=== PATIENT | female | born 1975 | race Caucasian/White ===

== ENCOUNTER → 2018-05-02 16:27 | Outpatient (CLI) | payer OTHER, SELFPAY ==
--- NOTE | 2018-05-02 16:32 | RAD_ITS ---
STUDY: X-RAY CHEST REASON FOR EXAM: Female, 43 years old. Persistent cough. Treated for influenza 2 weeks ago. TECHNIQUE: PA and lateral chest. COMPARISON: July 09, 2016. FINDINGS: The lungs are clear and expanded. There is no demonstrated pleural abnormality. Normal size heart. Normal mediastinum and alesia. Normal visualized pulmonary arteries. Normal visualized aortic arch and descending thoracic aorta. Normal visualized thoracic spine. Normal visualized ribs, clavicles, and shoulders. There is no demonstrated abnormality of the visualized soft tissue structures of the upper abdomen. RAD/Chest PA and Lateral IMPRESSION: Normal x-ray examination of the chest. Electronically Signed: Akash Londono MD at 2:10 EST , Service support ,
== END ==
PROVIDERS: Family Provider Internal Medicine; PCP Internal Medicine; Referring Provider Internal Medicine; Visit Provider Internal Medicine
DX: J11.1 Influenza due to unidentified influenza virus with other respiratory manifestations (principal)
CPT/HCPCS: 71046

== ENCOUNTER → 2019-10-10 14:45 | Outpatient (CLI) | payer OTHER, SELFPAY ==
--- NOTE | 2019-10-10 14:50 | BI_ITS ---
MAMMOGRAPHY - BILATERAL SCREENING 3-D TOMOSYNTHESIS REASON FOR EXAM: Female, 44 years old. Routine screening PERTINENT HISTORY: FAM HX MOTHER AGE 58, PAT GRT AUNT AGE ? -- LOST 80# IN 3 YRS -- BILAT REDUCTION AND LIFT 2008. TECHNIQUE: 2-D mammograms and 3-D Tomosynthesis of the breast (s) were performed. CAD was performed. COMPARISON: 2017 FINDINGS: The breast composition is composed of scattered fibroglandular density. Scattered benign calcifications are seen. No dense spiculated masses or suspicious microcalcifications are identified. No architectural distortion is identified. There is no skin thickening or retraction. There has been no significant change since the prior study. BI/SCREEN MAMM (CAD) W/SHELLEY BILAT IMPRESSION: No mammographic signs of malignancy. Routine yearly mammograms recommended. ASSESSMENT CATEGORY: BIRADS Category 1: Negative. A letter regarding these results will be sent to the patient by the facility within 30 days. FOLLOW UP RECOMMENDATION: Yearly follow up mammogram recommended. (A) Approximately 10% of breast cancers are not detected by mammography. A normal mammogram should not delay biopsy of a clinically suspicious abnormality. Electronically Signed: Samm Huerta MD at 9:31 EDT , Service support ,
== END ==
PROVIDERS: PCP Internal Medicine; Referring Provider Internal Medicine; Visit Provider Internal Medicine
DX: Z12.31 Encounter for screening mammogram for malignant neoplasm of breast (principal)
CPT/HCPCS: 77063; 77067

== ENCOUNTER 2020-02-03 22:52 | Emergency (ER) | payer OTHER, SELFPAY ==
[2020-02-03 22:53] VITALS: BP 152/89; PULSE 102; RESP 18; TEMP 36.4; O2SAT 97; BMI 37.8
[2020-02-03 23:09] VITALS: PULSE 86; RESP 20; O2SAT 96
--- NOTE | 2020-02-03 23:29 | ED.DCSUM_ITS ---
History of Present Illness Chief Complaint: Shortness of Breath Informant: Patient Onset: Days - 2-3 Activity at onset: - - cleaning out basement Timing: Continuous Quality: Wheezing - initially, now resolved Current Severity: Moderate Maximum Severity: Moderate Worsened by: - - breathing Chest Pain: - - pain, substernal, no radiation; pleuritic Narrative: Patient states 9-10 days ago she was in her basement doing some cleaning, and she pretreated herself with Benadryl because in the past when she spends too much time down there, she starts having allergic reaction symptoms including wheezing. She states she knows she has to limit herself to a couple hours at a time so that she does not have significant symptoms. This time she must was spent too much time down there, she had watery eyes sneezing, wheezing, coughing, like she has in the past. She thinks she has some type of reactive airway disease. However she does not have daily asthma preventative treatments since she never otherwise gets asthma symptoms. She states in the past it had gone to pleurisy and she had this pleuritic discomfort similar to what she has developed since 3 days ago gradually, however today it has become much worse. The other allergic symptoms are gone, and now she just has this pleuritic dejesus bsternal discomfort that has overlap the other symptoms. She denies any fevers, chills, headaches, myalgias, leg pain or swelling, no history of DVT or PE. Patient presents during the national coronavirus emergency declaration/pandemic. She denies any known contact with anyone infected with COVID-19. She denies traveling out of the immediate area recently. The last dose of Benadryl or any other [id number] medication that she took was around 24 hours ago. 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 Denies: Visual changes - bilaterally, Diplopia ENT: Reports: - - sneezing, now resolved, - - No loss of taste or smell. Denies: Rhinorrhea, Sore throat Cardiovascular: Reports: Chest pain. Denies: Palpitations Respiratory: Reports: Dyspnea - due to chest pain. wheezing resolved., Cough. Denies: Sputum, Dyspnea on exertion, Orthopnea Gastrointestinal: Denies: Abdominal pain, Nausea, Vomiting, Diarrhea, Melena, Hematochezia Genitourinary: Denies: Dysuria, Hematuria, Frequency Musculoskeletal: Denies: Myalgias, Neck pain, Back pain, Swelling, Extremity Pain Skin: Denies: Rash, Wounds Neurological: Denies: Headache, Weakness, Numbness Physical Exam Vital Signs/Narrative: Vital Signs Temp Pulse Resp BP Pulse Ox 02/03/20 23:09 86 20 H 96 02/03/20 22:53 97.6 F L 102 H 18 152/89 H 97 Inital Vital Signs reviewed: Yes General: Well nourished, Well developed, Acute Distress - mild, resp Head: Normocephalic, Atraumatic Eyes: Perrl, EOMI ENT: Moist mucous membranes, No rhinorrhea Neck: Supple, Nontender, No lymphadenopathy Cardiovascular: Regular rate, Regular rhythm, No murmurs Respiratory: CTA bilaterally, Chest nontender, - - mild resp distress, splinting due to painful substernal discomfort Abdomen: Soft, Nontender, Nondistended, Normal bowel sounds Back: Nontender, Normal Inspection Extremities: Nontender, No edema. Negative for: Calf Tenderness Skin: Normal color, No rash Neurological: Alert, Oriented x3, Cranial nerves II-XII grossly intact, Normal Strength, Normal Sensation, Normal Gait Psychological: Normal affect, Normal Mood Diagnostic/Tx/Re-eval Impressions Chest X-Ray 02/03/20 23:40 IMPRESSION: Pulmonary hypoexpansion with basilar atelectasis. at 0005 Reported and signed by: Mak Jefferson MD Electronically Signed: Mak Jefferson MD at 0:03 EDT Tel , Service support , Chest CTA 02/04/20 01:56 IMPRESSION: No pulmonary embolism, aortic aneurysm, or aortic dissection. Multi lobar airspace disease greatest within the lower lungs. Some of this disease I believe is some interstitial pulmonary edema, but the majority of the disease is likely pneumonia, possibly viral Individualized dose optimization techniques were used for this CT. at 0300 Reported and signed by: Mak Jefferson MD Electronically Signed: Mak Jefferson MD at 2:59 EDT Tel , Service support , ADDENDUM: 02/04/20 0314 IMPRESSION: No pulmonary embolism, aortic aneurysm, or aortic dissection. Multi lobar airspace disease greatest within the lower lungs. Some of this disease I believe is some interstitial pulmonary edema, but the majority of the disease is likely pneumonia, possibly viral Individualized dose optimization techniques were used for this CT. at 0300 Reported and signed by: Mak Jefferson MD N.B. : The above information has been verbally conveyed by Mak Jefferson MD to Joe Arciniega MD, on 02/04/2020 03:07:12 (ET). Electronically Signed: Mak Jefferson MD at 2:59 EDT Tel , Service support , 02/03/20 23:40 Chest 1 View (Portable) [RAD] Stat 02/04/20 01:56 CTA Chest W/WO Contrast [CT] Stat Laboratory Results 02/04/20 02/04/20 02/04/20 01:35 01:35 01:35 WBC 5.0 RBC 4.77 Hgb 13.8 Hct 41.7 MCV 87.4 MCH 28.9 MCHC 33.1 RDW Std Deviation 42.1 RDW Coeff of Katy 13.1 Plt Count 244 MPV 9.8 Immature Gran % (Auto) 1.000 H Neut % (Auto) 63.2 Lymph % (Auto) 22.0 Blair % (Auto) 10.2 H Eos % (Auto) 3.2 Baso % (Auto) 0.4 Absolute Neuts (auto) 3.2 Absolute Lymphs (auto) 1.10 Nucleated RBC % 0 D-Dimer Quant (PE/DVT) 0.52 H* Sodium 142 Potassium 3.4 L Chloride 106 Carbon Dioxide 29.0 Anion Gap 7 BUN 12 Creatinine 0.77 Estim Creat Clear Calc 74.72 Est GFR (MDRD) Af Amer 104 Est GFR (MDRD) Non-Af 86 BUN/Creatinine Ratio 15.6 Glucose 104 Calcium 8.7 - Rhythm Strip Rhythm Strip: Sinus Rhythm Rate: 85 Ectopy: None - EKG Initial EKG Interpretation: Sinus Rhythm, No Acute Injury Pattern - Normal EKG Treatment - Dyspnea: Albuterol, Atrovent, Steroid, - - IM Toradol - Medical Decision Making Initially patient was given an injection of Toradol and a duo nebulizer treatment. She had some improvement, but was still uncomfortable to take a breath, but in no distress. She mentioned that when she ate or drank something, after the symptoms started, seem to manipulated somewhat. Therefore I tried a GI cocktail and another albuterol inhaler. She had no significant improvement from that, she did not feel in distress at all, stated that she still felt the symptoms, but that she could tolerate it. She also mentioned that she was feeling a little lightheaded, I did not feel comfortable driving home and wanted to wait so I thought since she did not have major improvement from the treatments, it would be prudent to ensure she did not have a pulmonary embolus, she was amenable to that. Blood work was sent including a D-dimer. The D-dimer returned just barely elevated but the rest of the blood work was normal. Therefore CT angiography was performed to ensure she does not have pulmonary embolus. It is negative for that, however surprisingly, it shows diffuse patchy infiltrates that is reminiscent of COVID-19. She does not have any other classic symptoms of COVID-19, however as I discussed with her, she should treat herself as if she has until proven otherwise. We ambulated her here in the ER and she did fine, without significant dyspnea or hypoxemia. She is not septic and clinically is well and feeling relatively fine even though she does have the pleuritic discomfort she presented with although it is relatively mild. We pre scribed her prednisone after doing an outpatient send out COVID-19 swab, as well as a azithromycin. She was given the first dose of antibiotics here, advised to quarantine at home, given a work note, and instructions as to when to return. She has a pulse oximeter at home that she can check her pulse ox and we discussed that too. Patient was discharged with the above plan/paperwork, and then refused to undergo testing for COVID-19. I discussed with her that if she does so, she will have to quarantine herself for longer, for a total of 14 days. She understands this, and would prefer to do that for some reason. I discussed the fact that she lives with her who is asymptomatic, and he may desire to know if she is positive. She is considering these, but certainly we will not force her to be tested. She understands that she likely has COVID-19. ED Disposition - Plan for ED Patient: Disposition: Home or Assisted Living Diagnosis: Pneumonia, Suspected COVID-19 virus infection Instructions: ED PNEUMONITIS Adult Prescriptions: Azithromycin 250 mg PO DAILY #4 tab Prescription Printed Prednisone [Deltasone] 40 mg PO DAILY #10 tab Prescription Printed Referrals: Sandra Jackson DO [Primary Care Provider] - As Needed Additional Instructions: You were tested for COVID-19, however it is sent to an offsite laboratory, and will likely take 3-5 days to come back. Reference the pamphlet including with your discharge papers for information on setting up an online portal account to check the results yourself. -See additional attached quarantine instructions for what to do with regards to the possibility of coronavirus infection, given that you do not currently meet the [facility] requirements for testing since they require us to conserve the limited testing ability for the sickest, hospitalized patients.
--- NOTE | 2020-02-03 23:40 | RAD_ITS ---
HISTORY: HAD ALLERGIC REACTION TO DUST PARTICLES WHILE CLEANING HER BASEMENT, SOB AND COUGH. EXAM: XR Chest 1 View: COMPARISON: May 02, 2018 FINDINGS: # of images incl. paperwork: 1 Pulmonary hypoexpansion with basilar atelectasis is new Heart is not enlarged. No acute osseous pathology perceived. Pulmonary vascularity is distinct. No effusions. RAD/Chest 1 View (Portable) IMPRESSION: Pulmonary hypoexpansion with basilar atelectasis. at 0005 Reported and signed by: Mak Jefferson MD Electronically Signed: Mak Jefferson MD at 0:03 EDT Tel , Service support ,
[2020-02-03] MEDS: Ipratropium/Albuterol Sulfate 3 ML AMPUL.NEB INHALATION (23:42)
[2020-02-03] MEDS: Ketorolac 60 MG/2 ML Vial IM (23:50)
[2020-02-03 23:58] VITALS: PULSE 85; RESP 18
[2020-02-04 01:00] VITALS: PULSE 95; RESP 18; O2SAT 95
[2020-02-04] MEDS: Mag Hydrox/Al Hydrox/Simeth 30 ML UDC PO (01:00)
--- NOTE | 2020-02-04 01:23 | EKG12_ITS ---
Test Reason : CP Blood Pressure : / mmHG Vent. Rate : 085 BPM Atrial Rate : 085 BPM P-R Int : 146 ms QRS Dur : 090 ms QT Int : 374 ms P-R-T Axes : 026 -03 026 degrees QTc Int : 445 ms Normal sinus rhythm Inferior infarct , age undetermined Abnormal ECG Confirmed by SOL MANUEL, YAN ([id number]), manuscript editor CORRINA GRUBBS ([id number]) on 02/06/2020 8:18:00 AM Referred By: WHIT Confirmed By:YAN HORTON MD
[2020-02-04] MEDS: MethylPREDNISolone 125 MG/2 ML Vial IV (01:31)
[2020-02-04] MEDS: Albuterol 2.5 MG/3 ML VIAL.NEB. INHALATION (01:38)
[2020-02-04 01:43] LABS: Absolute Neutrophil Count 3.2 X10^3/uL (2.0-7.7); Basophil# 0.02 X10^3/uL; Basophil% 0.4 % (0-1); Eosinophil# 0.16 X10^3/uL; Eosinophils% 3.2 % (0-5); Hematocrit 41.7 % (37-47); Hemoglobin 13.8 g/dL (12.0-15.0); Mean Corp Hgb Conc 33.1 g/dL (32-36); Mean Corpuscular Hgb 28.9 pg (27.0-32.0); Mean Corpuscular Volume 87.4 fL (81-99); Mean Platelet Vol. 9.8 fl (6.2-12.0); Monocyte# 0.51 X10^3/uL; Monocyte% 10.2 % (0-10); NRBC Flagged by Analyzer 0 % (0-5); Neutrophil # 3.16 X10^3/uL (2.7-7.7); Neutrophil % 63.2 % (47-70); Platelet Count 244 K/mm3 (150-450); RBC Distribution Width CV 13.1 % (11.6-14.6); RBC Distribution Width SD 42.1 fl (35.1-43.9); Red Blood Count 4.77 M/mm3 (4.2-5.4)
[2020-02-04 01:51] LABS: Anion Gap 7 (5-15); BUN 12 mg/dL (7-18); BUN/Creat Ratio 15.6 RATIO (10-20); Calcium,Total 8.7 mg/dL (8.5-10.1); Chloride 106 mmol/L (98-107); Creatinine, Serum 0.77 mg/dL (0.55-1.02); EST Glomerular Filtration Rate 86 mL/min (>60); Est Glom Filt Rate - Afr Amer 104 mL/min (>60); Estimated Creatinine Clearance 74.72 ml/min; Glucose 104 mg/dL (74-106); Potassium 3.4 mmol/L (3.5-5.1); Sodium Level 142 mmol/L (136-145)
[2020-02-04 01:52] LABS: D-Dimer Quantitative (DVT/PE) 0.52 FEU/ug/m (0.27-0.49)
--- NOTE | 2020-02-04 01:56 | CT_ITS ---
We are attempting to reach an attending provider to discuss findings. An addendum with communication details will be sent when the communication is complete. HISTORY: COUGH,PLEURITIC CHEST PAIN,ELEVATED DDIMER TECHNIQUE: Helically acquired images were obtained of the chest following the intravenous administration of 100 ML of Isovue-370 Iodinated contrast. as per pulmonary angiogram protocol with 2D , but no 3-D MIP reconstructions. A radiation dose optimization technique was used for this scan. COMPARISON: Most recent comparison chest x-ray is from less than [address] recent [address] pulmonary angiography is from May 26, 2016 FINDINGS: # of images incl. paperwork: 1192 Pulmonary edema is present with interstitial septal thickening. Airspace disease, however, is also present within all 5 lobes of the lungs greatest adjacent to the diaphragm. No effusions. Within the thoracic spinebony alignment is normal. Vertebral body height is normal. Facets are well aligned. No rib lesions are perceived. Heart is not enlarged. The left ventricle is slightly distended possibly due to imaging mostly during end diastole versus mild left ventricular dilatation Thoracic aorta is normal. No aneurysms, stenoses, dissections, nor occlusions. No axillary or mediastinal adenopathy. No pulmonary emboli. Visualized portions of the upper abdomen are without identified acute pathology. CT/CTA Chest W/WO Contrast IMPRESSION: No pulmonary embolism, aortic aneurysm, or aortic dissection. Multi lobar airspace disease greatest within the lower lungs. Some of this disease I believe is some interstitial pulmonary edema, but the majority of the disease is likely pneumonia, possibly viral Individualized dose optimization techniques were used for this CT. at 0300 Reported and signed by: Mak Jefferson MD Electronically Signed: Mak Jefferson MD at 2:59 EDT Tel , Service support ,
[2020-02-04] MEDS: 0.9% Normal Saline 1,000 ML 999 ML IV (02:14)
[2020-02-04 03:33] VITALS: BP 151/90; PULSE 90; RESP 16; O2SAT 95
[2020-02-04] MEDS: Azithromycin 250 MG Tablet 500 MG PO (03:51)
[2020-02-04 03:54] VITALS: BP 132/86; PULSE 85; RESP 18; O2SAT 95
== END 2020-02-04 03:58 | disposition home or self-care (01) ==
PROVIDERS: Emergency Provider Emergency Medicine; PCP Internal Medicine
DX: J18.9 Pneumonia, unspecified organism (principal); J45.909 Unspecified asthma, uncomplicated; Z20.828 Contact with and (suspected) exposure to other viral communicable diseases
CPT/HCPCS: 71045; 71275; 80048; 85025; 85379; 93005; 94640; 96361; 96372; 96374; 99284; 99285; J7030; Q9967; A4216

== ENCOUNTER → 2020-05-02 16:00 | Outpatient (CLI) | payer OTHER, SELFPAY ==
--- NOTE | 2020-05-02 16:12 | MRI_ITS ---
STUDY: MRI BRAIN WITH AND WITHOUT CONTRAST REASON FOR EXAM: Female, 45 years old. frequent headaches, pituitary abnormality seen on prior spine mri at another facility TECHNIQUE: Standardized multiplanar fat and water weighted pulse sequences were obtained. IV Dotarem 19ml was administered for the contrast portion of the examination. COMPARISON: CT brain 04/21/2016 FINDINGS: Normal size of the ventricles and extra-axial spaces for the patient''s age. Normal white matter tracts of the supratentorial brain. There is no evidence for recent intracranial ischemia or other cause of cytotoxic edema on diffusion weighted imaging (DWI). Normal bilateral basal ganglia. Normal thalami. There is no extra-axial fluid accumulation. Normal flow voids within the major intracranial circulation suggesting patency by spin echo criteria. Normal venous enhancement. There is no enhancing intra-axial or extra-axial abnormality. There is enlargement of the sella turcica with increased CSF within the sella and flattening of the pituitary gland consistent with an empty sellar syndrome. Normal infundibular stalk, hypothalamus, and optic chiasm. Normal tectal plate and pineal gland. Normal midbrain, gus and medulla. Normal cerebellum. Normal basal cisterns. Normal bilateral temporal bones. Normal bilateral internal auditory canals. No demonstrated orbital abnormality, within the constraints of a routine brain study. Normal visualized paranasal sinuses. Normal calvarium and skull base. Normal visualized soft tissue structures. Normal visualized upper cervical spine. MRI/Brain W/WO Contrast IMPRESSION: Empty sella. Consider empty sella syndrome. Dedicated dynamic pituitary MRI may be helpful for further characterization. Electronically Signed: Jarvis Luke MD at 21:42 EST , Service support ,
== END ==
PROVIDERS: PCP Internal Medicine; Referring Provider Internal Medicine; Visit Provider Internal Medicine
DX: E23.7 Disorder of pituitary gland, unspecified (principal); R51.9 Headache, unspecified
CPT/HCPCS: 70553; A9575

== ENCOUNTER → 2020-05-10 07:59 | Outpatient (CLI) | payer OTHER, SELFPAY ==
[2020-05-10 09:58] LABS: ALB/GLOB Ratio 0.9 RATIO (0.9-2.4); AST(SGOT) 8 U/L (15-37); Alanine Aminotransfer ALT/SGPT 21 U/L (13-56); Albumin, Serum 3.3 g/dL (3.2-5.0); Alkaline Phosphatase 70 U/L (45-117); Anion Gap 5 (5-15); BUN 13 mg/dL (7-18); BUN/Creat Ratio 15.3 RATIO (10-20); Chloride 105 mmol/L (98-107); Creatinine, Serum 0.85 mg/dL (0.55-1.02); EST Glomerular Filtration Rate 76 mL/min (>60); Est Glom Filt Rate - Afr Amer 93 mL/min (>60); Globulin 3.7 g/dL (2.2-4.2); Glucose 91 mg/dL (74-106); Potassium 3.8 mmol/L (3.5-5.1); Sodium Level 140 mmol/L (136-145)
== END ==
PROVIDERS: PCP Internal Medicine; Referring Provider Internal Medicine; Visit Provider Internal Medicine
DX: E23.6 Other disorders of pituitary gland (principal)
CPT/HCPCS: 36415; 80053; 82533

== ENCOUNTER → 2020-05-15 10:36 | Outpatient (CLI) | payer OTHER, SELFPAY ==
--- NOTE | 2020-05-15 13:03 | NEURO ---
NCS and/or EMG Patient Report Ordering Doctor: Ankush Flores DATE OF SERVICE: 05/15/20 Shanthi Trinidad presents for electrodiagnostic testing of the upper limbs. She reports numbness and tingling in both hands, primarily the first 3 digits. She reports neck pain, which is fairly constant. Electrodiagnostic findings: Median motor nerve demonstrates normal distal latency, amplitude and conduction velocity bilaterally. Normal right and left ulnar motor response. Sensory responses are within normal limits. Median and ulnar F waves are normal. On needle EMG, all muscles tested in the upper limbs as well as the cervical paraspinals, showed no evidence of denervation with normal motor unit action potentials. Electrodiagnostic assessment: This is a normal electrodiagnostic study of the upper limbs. There is no electrodiagnostic evidence for peripheral neuropathy, including carpal tunnel or cubital tunnel syndrome. There is no electrodiagnostic evidence for cervical radiculopathy. If there are any further questions, please do not hesitate to contact me.
== END ==
PROVIDERS: PCP Internal Medicine; Referring Provider Orthopaedic Surgery; Visit Provider Orthopaedic Surgery
DX: M50.30 Other cervical disc degeneration, unspecified cervical region (principal)
CPT/HCPCS: 95886; 95912

== ENCOUNTER → 2021-10-10 | Outpatient (CLI) | payer OTHER, BC, SELFPAY ==
[2021-10-10 15:44] LABS: Vitamin D,25 Hydroxy 37.4 ng/mL
[2021-10-10 23:52] LABS: ALB/GLOB Ratio 0.9 RATIO (0.9-2.4); AST(SGOT) 10 U/L (15-37); Alanine Aminotransfer ALT/SGPT 20 U/L (13-56); Albumin, Serum 3.4 g/dL (3.2-5.0); Alkaline Phosphatase 68 U/L (45-117); Anion Gap 5 (5-15); BUN 20 mg/dL (7-18); BUN/Creat Ratio 22.6 RATIO (10-20); Calcium,Total 8.9 mg/dL (8.5-10.1); Chloride 104 mmol/L (98-107); Creatinine, Serum 0.89 mg/dL (0.55-1.02); EST Glomerular Filtration Rate 72 mL/min (>60); Est Glom Filt Rate - Afr Amer 87 mL/min (>60); Globulin 3.9 g/dL (2.2-4.2); Glucose 92 mg/dL (74-106); Potassium 3.9 mmol/L (3.5-5.1); Prolactin 7.2 ng/mL; Protein, Total 7.3 g/dL (6.4-8.2); Sodium Level 137 mmol/L (136-145); T4 Free Direct 1.06 ng/dL (0.76-1.46); Thyroid Stim Hormone (TSH) 1.22 uIU/mL (0.358-3.74)
== END | disposition home or self-care (01) ==
LOC: LAB 13:06
PROVIDERS: PCP Internal Medicine; Visit Provider Internal Medicine Endocrinology, Diabetes & Metabolism
DX: E23.6 Other disorders of pituitary gland (principal); E04.0 Nontoxic diffuse goiter; E55.9 Vitamin D deficiency, unspecified
CPT/HCPCS: 36415; 80053; 82306; 84146; 84439; 84443

== ENCOUNTER → 2022-06-04 | Outpatient (CLI) | payer OTHER, BC, SELFPAY ==
[2022-06-04 17:51] LABS: Vitamin D,25 Hydroxy 29.8 ng/mL
[2022-06-04 18:39] LABS: AST(SGOT) 20 U/L (15-37); Alanine Aminotransfer ALT/SGPT 27 U/L (13-56); Albumin, Serum 3.5 g/dL (3.2-5.0); Alkaline Phosphatase 70 U/L (45-117); Anion Gap 8 (5-15); BUN 11 mg/dL (7-18); Chloride 102 mmol/L (98-107); Creatinine, Serum 0.92 mg/dL (0.55-1.02); EST Glomerular Filtration Rate 69 mL/min (>60); Est Glom Filt Rate - Afr Amer 84 mL/min (>60); Globulin 3.6 g/dL (2.2-4.2); Glucose 117 mg/dL (74-106); Potassium 3.5 mmol/L (3.5-5.1); Protein, Total 7.1 g/dL (6.4-8.2); Sodium Level 139 mmol/L (136-145); T4 Free Direct 1.08 ng/dL (0.76-1.46)
== END | disposition home or self-care (01) ==
LOC: LAB 16:30
PROVIDERS: PCP Internal Medicine; Visit Provider Internal Medicine Endocrinology, Diabetes & Metabolism
DX: E04.0 Nontoxic diffuse goiter (principal); E23.6 Other disorders of pituitary gland; E55.9 Vitamin D deficiency, unspecified
CPT/HCPCS: 36415; 80053; 82306; 84146; 84439; 84443

== ENCOUNTER → 2022-07-30 | Outpatient (CLI) | payer OTHER, BC, SELFPAY ==
--- NOTE | 2022-07-30 17:40 | MRI_ITS ---
INDICATION: Disorder of the pituitary, change in prolactin level EXAMINATION: MRI - MR Brain WO/W Contrast TECHNIQUE: Multiplanar and multisequence MR images of the brain were obtained without and with gadolinium. IV Contrast Dosage and Agent: None. COMPARISON: None. FINDINGS: SELLA: Partially empty sella with normal appearance of the infundibulum. The neurohypophysis is demonstrated. BRAIN PARENCHYMA: No MRI evidence of hemorrhage. No evidence of acute infarct. No intracranial mass or mass effect. There is preservation of the hamm/white matter interface. Normal optic chiasm and hypothalamus. Posterior fossa structures are unremarkable. CSF SPACES: Appropriate for age. No hydrocephalus. Basal cisterns are patent. VASCULAR SYSTEM: Normal flow voids in the major intracranial circulation. CALVARIUM, SKULL BASE, PARANASAL SINUSES AND MASTOID AIR CELLS: Clear. No expansile changes. ORBITS: Both globes, extraocular muscles, optic nerves and retrobulbar fat appear unremarkable. MRI/Brain W/WO Contrast IMPRESSION: Partially empty sella with preservation of the neurohypophysis. No finding of sellar or suprasellar mass. Electronically Signed: Sean Gifford MD at 19:45 EDT ,
== END | disposition home or self-care (01) ==
LOC: MRI 16:48
PROVIDERS: PCP Internal Medicine; Referring Provider Internal Medicine Endocrinology, Diabetes & Metabolism; Visit Provider Internal Medicine Endocrinology, Diabetes & Metabolism
DX: E23.6 Other disorders of pituitary gland (principal)
CPT/HCPCS: 70553; A9575

== ENCOUNTER → 2022-11-26 | Outpatient (CLI) | payer OTHER, BC, SELFPAY ==
[2022-11-26 15:44] LABS: ALB/GLOB Ratio 0.9 RATIO (0.9-2.4); AST(SGOT) 13 U/L (15-37); Alanine Aminotransfer ALT/SGPT 23 U/L (13-56); Albumin, Serum 3.6 g/dL (3.2-5.0); Alkaline Phosphatase 77 U/L (45-117); Anion Gap 2 (5-15); BUN 15 mg/dL (7-18); BUN/Creat Ratio 14.4 RATIO (10-20); Calcium,Total 9.2 mg/dL (8.5-10.1); Chloride 106 mmol/L (98-107); Creatinine, Serum 1.04 mg/dL (0.55-1.02); EST Glomerular Filtration Rate 60 mL/min (>60); Est Glom Filt Rate - Afr Amer 72 mL/min (>60); Estradiol 70.7 pg/mL; Follicle Stimulating Hormone 7.9 mIU/mL; Globulin 4.2 g/dL (2.2-4.2); Glucose 94 mg/dL (74-106); Luteinizing Hormone 4.5 mIU/mL; Prolactin 8.3 ng/mL; Protein, Total 7.8 g/dL (6.4-8.2); Sodium Level 137 mmol/L (136-145); T4 Total, Thyroxin 10.3 ug/dL (4.8-13.9); Thyroid Stim Hormone (TSH) 1.32 uIU/mL (0.358-3.74)
== END | disposition home or self-care (01) ==
LOC: LAB 14:54
PROVIDERS: PCP Internal Medicine; Referring Provider Internal Medicine Endocrinology, Diabetes & Metabolism; Visit Provider Internal Medicine Endocrinology, Diabetes & Metabolism
DX: E04.0 Nontoxic diffuse goiter (principal); E23.6 Other disorders of pituitary gland; N95.1 Menopausal and female climacteric states
CPT/HCPCS: 36415; 80053; 82670; 83001; 83002; 84146; 84436; 84443

== ENCOUNTER → 2023-03-22 | Outpatient (CLI) | payer OTHER, BC, SELFPAY ==
[2023-03-22 16:38] LABS: Vitamin B12 353 pg/mL (211-911); Vitamin D,25 Hydroxy 34.3 ng/mL
[2023-03-22 16:45] LABS: ALB/GLOB Ratio 0.9 RATIO (0.9-2.4); AST(SGOT) 8 U/L (15-37); Alanine Aminotransfer ALT/SGPT 21 U/L (13-56); Albumin, Serum 3.5 g/dL (3.2-5.0); Alkaline Phosphatase 78 U/L (45-117); Anion Gap 6 (5-15); BUN 16 mg/dL (7-18); BUN/Creat Ratio 14.4 RATIO (10-20); Calcium,Total 9.6 mg/dL (8.5-10.1); Chloride 104 mmol/L (98-107); Creatinine, Serum 1.11 mg/dL (0.55-1.02); EST Glomerular Filtration Rate 55 mL/min (>60); Est Glom Filt Rate - Afr Amer 67 mL/min (>60); Globulin 4.1 g/dL (2.2-4.2); Glucose 79 mg/dL (74-106); Potassium 3.7 mmol/L (3.5-5.1); Prolactin 9.8 ng/mL; Protein, Total 7.6 g/dL (6.4-8.2); Sodium Level 138 mmol/L (136-145); T4 Free Direct 0.97 ng/dL (0.76-1.46); Thyroid Stim Hormone (TSH) 1.29 uIU/mL (0.358-3.74)
== END | disposition home or self-care (01) ==
LOC: LAB 15:44
PROVIDERS: PCP Internal Medicine; Referring Provider Internal Medicine Endocrinology, Diabetes & Metabolism; Visit Provider Internal Medicine Endocrinology, Diabetes & Metabolism
DX: E23.6 Other disorders of pituitary gland (principal); E22.1 Hyperprolactinemia; E04.0 Nontoxic diffuse goiter; E55.9 Vitamin D deficiency, unspecified; D51.3 Other dietary vitamin B12 deficiency anemia
CPT/HCPCS: 36415; 80053; 82306; 82607; 84146; 84439; 84443

== ENCOUNTER 2023-08-04 16:57 | Emergency (ER) | payer BC, SELFPAY ==
[2023-08-04 16:58] VITALS: BP 134/73; PULSE 89; RESP 18; TEMP 36.1; O2SAT 98; BMI 41.1
--- NOTE | 2023-08-04 18:18 | EX.ED.DYSGE1 ---
HPI History of Present Illness Chief Complaint: Edema Narrative Narrative: 48-year-old female presenting with bilateral lower extremity swelling. It is not pitting edema. Patient has chronic back pain and was seen by pain management today. The nurse practitioner she saw thought that her swelling could be due to her being on Lyrica and discontinued today. She also had concerned that her swelling may be cardiac related even though it is not having pitting edema and the edema is not new. Patient's nurse practitioner told her a cardiac workup would not hurt and she sent her to the emergency room. Patient denies chest pain, palpitations, shortness of breath. She does not have orthopnea or dyspnea with exertion. No fevers or chills. No cough. No weight changes. Patient has no history of cardiac disease. Patient does note that her swelling is better at night and worse at the end of the day. PFSH PFSH Home Medications dextroamphetamine-amphetamine 20 mg tablet 20 mg PO DAILY 02/03/20 [History Last Taken Unknown] azithromycin 250 mg tablet 250 mg PO DAILY #4 tabs 02/04/20 [Rx Last Taken Unknown] prednisone 20 mg tablet 40 mg (2 x 20 mg) PO DAILY #10 tabs 02/04/20 [Rx Last Taken Unknown] Allergy/AdvReac Type Severity Reaction Status Date / Time venlafaxine [From Effexor] Allergy NEEDS Verified 08/04/23 16:58 FOLLOW-UP Social History Smoking Status: Never smoker ROS [facility] ED Constitutional Constitutional ED: Denies chills, fever(s) or sweats Eyes Eyes: Denies blurry vision or change in vision ENT ENT ED: Denies ear pain or sore throat Cardiovascular Cardiovascular: Denies chest pain, palpitations or racing heartbeat Respiratory/Chest Respiratory/Chest: Denies cough, dyspnea or sputum Gastrointestinal Gastrointestinal: Denies abdominal pain, constipation, diarrhea, nausea or vomiting Genitourinary Genitourinary ED: Denies dysuria, hematuria or urinary frequency Musculoskeletal Musculoskeletal: Reports other Details: Bilateral lower extremity edema ; Denies arthralgias, myalgias or neck pain Integumentary Denies abscess, Abrasions or rash Neurologic Neurologic: Denies headache(s), paresthesias or weakness Psychiatric Psychiatric: Denies anxiety, depression, suicidal ideation or suicidal thoughts Endocrine Endocrinology: Denies polydipsia or polyuria EXAM Physical Exam Const Vital Signs: 08/04/23 16:58 08/04/23 19:32 08/04/23 18:58 Temperature 97 F L Temperature Source Temporal Pulse Rate 89 88 Respiratory Rate 18 20 H Blood Pressure 134/73 H 130/64 H Blood Pressure Mean 93 86 Pulse Ox 98 96 95 Oxygen Delivery Method Room Air Room Air Room Air Positive well nourished General Appearance ED: NAD HEENT Reports moist mucous membranes Eyes PERRL and EOMs intact bilaterally Chest Wall inspection of chest normal and palpation of chest normal Resp normal respiratory effort and clear to auscultation bilaterally Auscultation: Negative for rales, rhonchi or wheezes Cardio regular rate and regular rhythm Extremity Extremity Narrative: Mild symmetrical nonpitting edema bilateral lower extremities. Neuro oriented x3 and CN's II-XII intact bilaterally Sensorium / Orientation: alert Motor Exam: strength 5/5 throughout Psych mental status grossly normal Skin no rashes or lesions noted MDM MDM MDM Narrative Medical decision making narrative: Patient presenting with bilateral lower extremity edema which is not new. She states he gets better at night and worse throughout the day. She was at pain management today where they speculated as to whether she was having swelling due to being on Lyrica which she been on for a long time. He discontinued it. Patient was sent to the ER out of concern for possible cardiac source. Patient does not have any cardiac or pulmonary symptoms. Her heart was regular rate and rhythm without murmur. Lungs clear to station bilaterally. Vital signs stable. I counseled her that I do not believe she needs a cardiac workup but she would prefer to have this done today since she was referred here. CBC will be obtained to assess white blood cell count, hemoglobin, platelets. BMP to assess renal function, electrolytes, glucose. High-sensitivity troponin EKG to assess for ischemia/dysrhythmia. BNP to assess for CHF. Chest x-ray to rule out pneumonia or CHF. CBC shows normal white blood cell count 6.9. Hemoglobin 12.9. Platelets are normal at 338. Renal function electrolytes all within normal limits. High-sensitivity troponin less than 3. BNP 10.1. Chest x-ray my interpretation shows no acute process. Radiology interprets this and agrees. EKG normal sinus rhythm with ventricular rate of 87 bpm on my interpretation. Patient's workup is ultimately negative. Recommended that she wear compression on her lower extremities for edema. I do not have any suspicion for DVT. Patient discharged home in stable condition. Impression: 1. Lower extremity edema bilaterally Lab Data Attestation: I reviewed the patient's lab results. Labs: Laboratory Results - last 24 hr 08/04/23 19:05 WBC 6.9 RBC 4.50 Hgb 12.9 Hct 39.8 MCV 88.4 MCH 28.7 MCHC 32.4 RDW Std Deviation 43.7 RDW Coeff of Katy 13.5 Plt Count 338 MPV 9.6 Immature Gran % (Auto) 0.300 Neut % (Auto) 61.8 Lymph % (Auto) 23.9 Sherman % (Auto) 10.1 H Eos % (Auto) 3.2 Baso % (Auto) 0.7 Absolute Neuts (auto) 4.3 Absolute Lymphs (auto) 1.66 Nucleated RBC % 0 Sodium 139 Potassium 3.8 Chloride 105 Carbon Dioxide 31.0 Anion Gap 3 L BUN 12 Creatinine 1.02 Estim Creat Clear Calc 76.58 Est GFR (MDRD) Af Amer 74 Est GFR (MDRD) Non-Af 61 BUN/Creatinine Ratio 11.8 Glucose 139 H Calcium 9.2 Troponin I High Sens < 3 L B-Natriuretic Peptide 10.1 Radiography Diagnostic Testing: Clinical Impression(s) from Imaging Studies Chest X-Ray 08/04/23 19:00 IMPRESSION: No radiographic evidence of acute cardiopulmonary disease. Electronically Signed: Akash Bautista MD at 19:32 EDT Reading Location ID and State: [facility] / [place] Tel , Service support , Discharge Plan Triage Chief Complaint: Edema ED Provider: Lico Navarrete Dx/Rx/DC Orders Instructions: ED Peripheral Edema, Bilateral Prescriptions: No Action dextroamphetamine-amphetamine 20 MG tablet 20 mg PO DAILY prednisone 20 MG tablet 40 mg PO DAILY Qty: 10 0RF Rx Instructions: With food azithromycin 250 MG tablet 250 mg PO DAILY Qty: 4 0RF Primary Care Provider: Sandra Jackson Referrals: Sandra Jackson DO [Primary Care Provider] - Disposition Disposition: Home, Self Care
[2023-08-04 18:58] VITALS: BP 130/64; PULSE 88; RESP 20; O2SAT 95
--- NOTE | 2023-08-04 19:00 | RAD_ITS ---
INDICATION: chest pain EXAMINATION/TECHNIQUE: X-RAY - portable upright AP chest x-ray COMPARISON: 02/03/2020 FINDINGS: LINES/DEVICES: None. LUNGS: Persistent elevation right hemidiaphragm. No vascular congestion, consolidation or pleural effusion. MEDIASTINUM AND CARDIOVASCULAR STRUCTURES: Cardiac silhouette stable within normal limits. BONES AND SOFT TISSUES: No acute changes. RAD/Chest 1 View (Portable) IMPRESSION: No radiographic evidence of acute cardiopulmonary disease. Electronically Signed: Akash Bautista MD at 19:32 EDT ,
[2023-08-04 19:14] LABS: Absolute Lymphocyte Count 1.66 X10^3/uL (0.83-4.51); Absolute Neutrophil Count 4.3 X10^3/uL (2.0-7.7); Basophil# 0.05 X10^3/uL; Basophil% 0.7 % (0-1); Eosinophil# 0.22 X10^3/uL; Eosinophils% 3.2 % (0-5); Hematocrit 39.8 % (37-47); Hemoglobin 12.9 g/dL (12.0-15.0); Lymphocyte # 1.66 X10^3/ul (0.83-4.51); Lymphocyte % 23.9 % (19-41); Mean Corp Hgb Conc 32.4 g/dL (32-36); Mean Corpuscular Hgb 28.7 pg (27.0-32.0); Mean Corpuscular Volume 88.4 fL (81-99); Mean Platelet Vol. 9.6 fl (6.2-12.0); Monocyte% 10.1 % (0-10); NRBC Flagged by Analyzer 0 % (0-5); Neutrophil # 4.29 X10^3/uL (2.7-7.7); Neutrophil % 61.8 % (47-70); Platelet Count 338 K/mm3 (150-450); RBC Distribution Width CV 13.5 % (11.6-14.6); RBC Distribution Width SD 43.7 fl (35.1-43.9); White Blood Count 6.9 K/mm3 (4.4-11.0)
[2023-08-04 19:32] VITALS: O2SAT 96
[2023-08-04 19:35] LABS: BNP,B-Type NATRIURETIC PEPTIDE 10.1 pg/mL (0-100)
[2023-08-04 19:38] LABS: Anion Gap 3 (5-15); BUN 12 mg/dL (7-18); BUN/Creat Ratio 11.8 RATIO (10-20); Calcium,Total 9.2 mg/dL (8.5-10.1); Chloride 105 mmol/L (98-107); Creatinine, Serum 1.02 mg/dL (0.55-1.02); EST Glomerular Filtration Rate 61 mL/min (>60); Est Glom Filt Rate - Afr Amer 74 mL/min (>60); Estimated Creatinine Clearance 76.58 ml/min; Glucose 139 mg/dL (74-106); Potassium 3.8 mmol/L (3.5-5.1); Sodium Level 139 mmol/L (136-145); Troponin-I HS < 3 pg/mL (3.0-54.0)
[2023-08-04 20:00] VITALS: BP 141/66; PULSE 97; RESP 22; TEMP 36.4; O2SAT 95
[2023-08-04 20:08] VITALS: BP 141/66; PULSE 97; RESP 22; TEMP 36.4; O2SAT 95
== END 2023-08-04 20:09 | disposition home or self-care (01) ==
PROVIDERS: Emergency Provider Student in an Organized Health Care Education/Training Program; PCP Internal Medicine; Visit Provider Student in an Organized Health Care Education/Training Program
DX: R60.0 Localized edema (principal); M54.9 Dorsalgia, unspecified; G89.29 Other chronic pain
CPT/HCPCS: 71045; 80048; 83880; 84484; 85025; 93005; 99284; A4216

== ENCOUNTER → 2023-08-30 | Outpatient (CLI) | payer BC, SELFPAY ==
[2023-08-30 16:31] LABS: Vitamin B12 358 pg/mL (211-911); Vitamin D,25 Hydroxy 49.7 ng/mL
[2023-08-30 17:45] LABS: ALB/GLOB Ratio 0.8 RATIO (0.9-2.4); AST(SGOT) 16 U/L (15-37); Alanine Aminotransfer ALT/SGPT 24 U/L (13-56); Albumin, Serum 3.7 g/dL (3.2-5.0); Alkaline Phosphatase 73 U/L (45-117); Anion Gap 5 (5-15); BUN 13 mg/dL (7-18); BUN/Creat Ratio 14.3 RATIO (10-20); Calcium,Total 9.9 mg/dL (8.5-10.1); Chloride 103 mmol/L (98-107); Creatinine, Serum 0.91 mg/dL (0.55-1.02); EST Glomerular Filtration Rate 70 mL/min (>60); Est Glom Filt Rate - Afr Amer 84 mL/min (>60); Globulin 4.4 g/dL (2.2-4.2); Glucose 105 mg/dL (74-106); Potassium 4.1 mmol/L (3.5-5.1); Prolactin 7.1 ng/mL; Protein, Total 8.1 g/dL (6.4-8.2); Sodium Level 136 mmol/L (136-145); T4 Free Direct 1.03 ng/dL (0.76-1.46); Thyroid Stim Hormone (TSH) 1.37 uIU/mL (0.358-3.74)
== END | disposition home or self-care (01) ==
LOC: LAB 15:45
PROVIDERS: PCP Internal Medicine; Referring Provider Internal Medicine Endocrinology, Diabetes & Metabolism; Visit Provider Internal Medicine Endocrinology, Diabetes & Metabolism
DX: E23.6 Other disorders of pituitary gland (principal); E04.0 Nontoxic diffuse goiter; E55.9 Vitamin D deficiency, unspecified; D51.3 Other dietary vitamin B12 deficiency anemia
CPT/HCPCS: 36415; 80053; 82306; 82607; 84146; 84439; 84443

== ENCOUNTER → 2023-11-15 | Outpatient (CLI) | payer BC, SELFPAY ==
[2023-11-15 12:15] LABS: Hematocrit 43.5 % (37-47); Hemoglobin 14.2 g/dL (12.0-15.0); Mean Corp Hgb Conc 32.6 g/dL (32-36); Mean Corpuscular Hgb 28.5 pg (27.0-32.0); Mean Corpuscular Volume 87.2 fL (81-99); Mean Platelet Vol. 10.2 fl (6.2-12.0); Platelet Count 332 K/mm3 (150-450); RBC Distribution Width CV 14.6 % (11.6-14.6); RBC Distribution Width SD 46.8 fl (35.1-43.9); Red Blood Count 4.99 M/mm3 (4.2-5.4); White Blood Count 5.2 K/mm3 (4.4-11.0)
[2023-11-15 12:46] LABS: Anion Gap 5 (5-15); BUN 19 mg/dL (7-18); BUN/Creat Ratio 18.8 RATIO (10-20); Calcium,Total 9.4 mg/dL (8.5-10.1); Chloride 107 mmol/L (98-107); Creatinine, Serum 1.01 mg/dL (0.55-1.02); EST Glomerular Filtration Rate 62 mL/min (>60); Est Glom Filt Rate - Afr Amer 74 mL/min (>60); Glucose 99 mg/dL (74-106); Potassium 3.9 mmol/L (3.5-5.1); Sodium Level 139 mmol/L (136-145)
== END | disposition home or self-care (01) ==
LOC: LAB 11:10
PROVIDERS: PCP Internal Medicine; Referring Provider Clinical Nurse Specialist Adult Health; Visit Provider Clinical Nurse Specialist Adult Health
DX: Z51.81 Encounter for therapeutic drug level monitoring (principal); Z79.1 Long term (current) use of non-steroidal anti-inflammatories (NSAID)
CPT/HCPCS: 36415; 80048; 85027

== ENCOUNTER → 2024-03-14 | Outpatient (CLI) | payer BC, SELFPAY ==
[2024-03-14 17:09] LABS: Vitamin B12 421 pg/mL (211-911)
[2024-03-14 17:32] LABS: ALB/GLOB Ratio 1.1 RATIO (0.9-2.4); AST(SGOT) 12 U/L (15-37); Alanine Aminotransfer ALT/SGPT 17 U/L (13-56); Albumin, Serum 3.9 g/dL (3.2-5.0); Alkaline Phosphatase 91 U/L (45-117); Anion Gap 3 (5-15); BUN 18 mg/dL (7-18); Calcium,Total 9.6 mg/dL (8.5-10.1); Chloride 104 mmol/L (98-107); Creatinine, Serum 1.06 mg/dL (0.55-1.02); EST Glomerular Filtration Rate 58 mL/min (>60); Est Glom Filt Rate - Afr Amer 70 mL/min (>60); Free T3 2.6 pg/mL (2.18-3.98); Globulin 3.7 g/dL (2.2-4.2); Glucose 103 mg/dL (74-106); Potassium 4.4 mmol/L (3.5-5.1); Protein, Total 7.6 g/dL (6.4-8.2); Sodium Level 138 mmol/L (136-145); T4 Free Direct 0.97 ng/dL (0.76-1.46)
== END | disposition home or self-care (01) ==
LOC: LAB 15:28
PROVIDERS: PCP Internal Medicine; Referring Provider Internal Medicine Endocrinology, Diabetes & Metabolism; Visit Provider Internal Medicine Endocrinology, Diabetes & Metabolism
DX: E23.6 Other disorders of pituitary gland (principal); E04.0 Nontoxic diffuse goiter; D51.3 Other dietary vitamin B12 deficiency anemia
CPT/HCPCS: 36415; 80053; 82607; 84439; 84443; 84481

== ENCOUNTER 2024-06-26 12:30 | Emergency (ER) | payer BC, SELFPAY ==
[2024-06-26 12:31] VITALS: BP 148/91; PULSE 115; RESP 18; TEMP 36.4; O2SAT 98; BMI 38.0
--- NOTE | 2024-06-26 12:34 | RAD_ITS ---
EXAM: XR Right Knee Complete, 4 or More Views CLINICAL INDICATION: TECHNIQUE: Four or more views of the right knee. COMPARISON: No relevant prior studies available. FINDINGS: BONES/JOINTS: Moderate tricompartmental degenerative changes. No acute fracture. No dislocation. SOFT TISSUES: Unremarkable. RAD/Knee 4 or More Views IMPRESSION: Degenerative changes as above. Reading Location: [facility]
--- NOTE | 2024-06-26 13:08 | ED.VIS.LOWEX ---
HPI <NAYELI Lemon - Last Filed: 06/26/24 14:49> History of Present Illness Chief Complaint: Lower Extremity Injury Narrative Narrative: 49-year-old female presents with a right knee injury that occurred last night. Her large dog slid on the ceramic tile and hit the lateral side of her right knee causing it to buckle inward. She went to bed but this morning has increased pain and swelling and difficulty ambulating. She tried to get an appointment at [facility] as she is an established patient there but they told her to come to the ED. She denies weakness or numbness or tingling. PFSH <NAYELI Lemon - Last Filed: 06/26/24 14:49> [facility] Medical History no medical history Home Medications ?Medication ?Instructions ?Recorded ?Last Taken ?Type dextroamphetamine-amphetamine 20 20 mg PO DAILY 02/03/20 Unknown History mg tablet azithromycin 250 mg tablet 250 mg PO DAILY #4 tabs 02/04/20 Unknown Rx celecoxib 200 mg capsule 200 mg PO DAILY 06/26/24 Unknown History ergocalciferol (vitamin D2) 1,250 1,250 mcg PO QWEEK 06/26/24 Unknown History mcg (50,000 unit) capsule gabapentin 300 mg capsule 300 mg PO QHS 06/26/24 Unknown History topiramate 50 mg tablet mg 06/26/24 Unknown History Allergy/AdvReac Type Severity Reaction Status Date / Time venlafaxine (From Effexor) Allergy NEEDS Verified 06/26/24 12:31 FOLLOW-UP Family History no significant family his Surgical History no surgical history Social History Smoking Status: Never smoker ROS <NAYELI Lemon - Last Filed: 06/26/24 14:49> ROS ED ROS Narrative Neuro: Negative for motor/sensory dysfunction. Musc: Positive for right knee pain, swelling, trauma. EXAM <NAYELI Lemon - Last Filed: 06/26/24 14:49> Physical Exam Narrative Exam Narrative: CONST: Patient sitting in no acute distress. EYES: Normal inspection. SKIN: Color normal, no rash, warm, dry, intact. EXTREMITIES: Mild right knee swelling. Tenderness over the patella and medial joint line. Extension intact. Pain with valgus stress but no laxity. Negative anterior and posterior drawer. 5/5 strength in dorsi flexion and plantarflexion, normal sensation, 2+ DP pulses. NEURO: Alert and answering questions appropriately. PSYCH: Normal affect. Const Vital Signs: 06/26/24 12:31 06/26/24 14:57 Temperature 97.5 F L 97.5 F L Temperature Source Temporal Pulse Rate 115 H 115 H Respiratory Rate 18 16 Blood Pressure 148/91 H 148/91 H Blood Pressure Mean 110 110 Pulse Ox 98 98 Oxygen Delivery Method Room Air <Dr. Km Winters, - Last Filed: 06/26/24 22:51> Physical Exam Const Vital Signs: 06/26/24 12:31 06/26/24 14:57 Temperature 97.5 F L 97.5 F L Temperature Source Temporal Pulse Rate 115 H 115 H Respiratory Rate 18 16 Blood Pressure 148/91 H 148/91 H Blood Pressure Mean 110 110 Pulse Ox 98 98 Oxygen Delivery Method Room Air MDM <Abiola Conway PA - Last Filed: 06/26/24 14:49> [facility] Narrative Medical decision making narrative: 49-year-old female had a right knee injury with her dog striking the lateral knee and now has medial knee pain. There is mild swelling. Range of motion is limited due to pain but extension is intact. There is pain with valgus stress and I suspect an MCL sprain. No gross laxity. Distally neurovascularly intact. X-ray shows osteoarthritis but no acute findings. Patient was given crutches, knee immobilizer, and states she is comfortable taking [id number] pain relievers. She is a patient of [facility] and will follow-up there. She was discharged in stable condition. Differential includes fracture, ligamentous or meniscal injury Radiography Diagnostic Testing: Clinical Impression(s) from Imaging Studies Knee X-Ray 06/26/24 12:34 IMPRESSION: Degenerative changes as above. Reading [facility] ED attending interpretation of right knee shows no fracture or dislocation, osteoarthritis. <Dr. Km Winters DO - Last Filed: 06/26/24 22:51> [facility] Narrative Medical decision making narrative: 49-year-old female had a right knee injury with her dog striking the lateral knee and now has medial knee pain. There is mild swelling. Range of motion is limited due to pain but extension is intact. There is pain with valgus stress and I suspect an MCL sprain. No gross laxity. Distally neurovascularly intact. X-ray shows osteoarthritis but no acute findings. Patient was given crutches, knee immobilizer, and states she is comfortable taking [id number] pain relievers. She is a patient of [facility] and will follow-up there. She was discharged in stable condition. Differential includes fracture, ligamentous or meniscal injury Supervisory Physician Note Patient was seen and examined with the Advanced Practice Provider. Nursing notes and vital signs have been reviewed. Pertinent old records have been reviewed. I agree with the essential elements of the VIVIEN's history, physical exam, assessment, and plan. The differential diagnosis and management options were discussed with the VIVIEN. I participated in determining and agree with the management, procedures, final impression and disposition as documented. See changes noted by me. Please see addendum or separate note for any additional details. Impression: 1. Right knee sprain 2. Right knee osteoarthritis Radiography Diagnostic Testing: Clinical Impression(s) from Imaging Studies Knee X-Ray 06/26/24 12:34 IMPRESSION: Degenerative changes as above. Reading Location: [facility] Discharge Plan Triage Chief Complaint: Lower Extremity Injury ED Midlevel Provider: Abiola Conway ED Provider: Km Winters Dx/Rx/DC Orders Clinical Impression: Right knee sprain, Osteoarthritis of right knee Instructions: ED Knee Sprain Ligaments Prescriptions: No Action dextroamphetamine-amphetamine 20 MG tablet 20 mg PO DAILY azithromycin 250 MG tablet 250 mg PO DAILY Qty: 4 0RF celecoxib 200 mg capsule 200 mg PO DAILY gabapentin 300 mg capsule 300 mg PO QHS ergocalciferol (vitamin D2) 1,250 mcg (50,000 unit) capsule 1,250 mcg PO QWEEK topiramate 50 mg tablet Patient Comments: TAKE 1/2 TABLET BY MOUTH DAILY X1 WEEK, THEN INCREASE TO 1 TAB DAILY Primary Care Provider: Sandra Jackson Referrals: Sandra Jackson DO [Primary Care Provider] - Activity Restrictions/Additional Instructions: Your knee x-ray shows osteoarthritis but no broken bones. I suspect you have a ligament injury and recommend you use the crutches and knee immobilizer to limit motion. Take Tylenol or Motrin as needed and follow-up with your orthopedic doctor. Print Language: Mongolian Disposition Disposition: Home, Self Care Discharge Date/Time: 06/26/24 15:02
[2024-06-26] MEDS: Ketorolac 15 MG/ML Vial IM (13:15)
[2024-06-26] MEDS: Ondansetron ODT 4 MG Tablet PO (13:16)
[2024-06-26 14:57] VITALS: BP 148/91; PULSE 115; RESP 16; TEMP 36.4; O2SAT 98
== END 2024-06-26 15:02 | disposition home or self-care (01) ==
PROVIDERS: Emergency Provider Surgery; PCP Internal Medicine; Visit Provider Surgery
DX: S83.91XA Sprain of unspecified site of right knee, initial encounter (principal); W54.1XXA Struck by dog, initial encounter; M17.11 Unilateral primary osteoarthritis, right knee
CPT/HCPCS: 73564; 96374; 99284

== ENCOUNTER → 2024-07-06 | Outpatient (CLI) | payer BC, SELFPAY ==
[2024-07-06 11:50] LABS: ALB/GLOB Ratio 1.3 RATIO (0.9-2.4); AST(SGOT) 16 U/L (<=31); Alanine Aminotransfer ALT/SGPT 11 U/L (<=34); Alkaline Phosphatase 80 U/L (35-104); Anion Gap 10 (5-15); BUN 16 mg/dL (4-19); BUN/Creat Ratio 15.9 RATIO (10-20); Calcium,Total 9.6 mg/dL (7.6-11.0); Carbon Dioxide 24.6 mmol/L (21.0-32.0); Chloride 104 mmol/L (98-108); Creatinine, Serum 0.98 mg/dL (0.70-1.20); EST Glomerular Filtration Rate 70 (>60); Globulin 3.1 g/dL (2.2-4.2); Glucose 102 mg/dL (70-99); Potassium 4.4 mmol/L (3.3-5.1); Sodium Level 139 mmol/L (133-145); Total Bilirubin 0.58 mg/dL (0.00-1.30)
[2024-07-06 11:57] LABS: Vitamin D,25 Hydroxy 23.6 ng/mL (30-100)
== END | disposition home or self-care (01) ==
LOC: LAB 10:34
PROVIDERS: PCP Internal Medicine; Referring Provider Physician Assistant; Visit Provider Physician Assistant
DX: E23.6 Other disorders of pituitary gland (principal); E55.9 Vitamin D deficiency, unspecified
CPT/HCPCS: 36415; 80053; 82306

== ENCOUNTER → 2024-09-20 | Outpatient (CLI) | payer BC, SELFPAY ==
[2024-09-20 16:44] LABS: ALB/GLOB Ratio 1.2 RATIO (0.9-2.4); AST(SGOT) 17 U/L (<=31); Alanine Aminotransfer ALT/SGPT 10 U/L (<=34); Alkaline Phosphatase 72 U/L (35-104); Anion Gap 10 (5-15); BUN 18 mg/dL (4-19); BUN/Creat Ratio 16.9 RATIO (10-20); Calcium,Total 9.4 mg/dL (7.6-11.0); Carbon Dioxide 23.2 mmol/L (21.0-32.0); Chloride 102 mmol/L (98-108); Creatinine, Serum 1.07 mg/dL (0.70-1.20); EST Glomerular Filtration Rate 63 (>60); Globulin 3.4 g/dL (2.2-4.2); Glucose 100 mg/dL (70-99); Potassium 4.1 mmol/L (3.3-5.1); Protein, Total 7.4 g/dL (5.9-8.4); Sodium Level 136 mmol/L (133-145); Total Bilirubin 0.57 mg/dL (0.00-1.30); Vitamin D,25 Hydroxy 36.9 ng/mL (30-100)
== END | disposition home or self-care (01) ==
LOC: LAB 14:12
PROVIDERS: PCP Internal Medicine; Referring Provider Internal Medicine Endocrinology, Diabetes & Metabolism; Visit Provider Internal Medicine Endocrinology, Diabetes & Metabolism
DX: E23.6 Other disorders of pituitary gland (principal); E55.9 Vitamin D deficiency, unspecified; E04.0 Nontoxic diffuse goiter
CPT/HCPCS: 36415; 80053; 82306; 84443